=== PATIENT | male | born 1990 | race African-American/Black ===

== ENCOUNTER → 2017-07-21 | Day surgery (SDC) | payer OTHER ==
[~2017-07-21] VITALS: Ht 185.4 cm; Wt 122.3 kg
[~2017-07-21] MED LIST: ACETAMINOPHEN 1000 MG/100 ML 100 ML IV ONE; BACITRACIN TOP OINT 15 GM TUBE ONE; BUPIVACAINE HCL PF 0.5% 30 ML VIAL ONE; CHLORHEXIDINE GLUCONATE 2 % 1 PACK (2 CLOTHS) TOPICAL PRN; DEXAMETHASONE SOD PHOS 4 MG/ML VIAL IV ONE; DO NOT ADM ANY ANTICOAGULANT DRUGS PRN; GLYCOPYRROLATE 1 MG/5 ML SYRINGE IV PUSH ONE; LACTATED RINGER'S 1000 ML INJ 1,000 ML IV ONE; LACTATED RINGER'S 1000 ML IV PRN; LIDOCAINE HCL 1% PF 5 ML SYRINGE OTHER ONE; METOPROLOL TARTRATE 25 MG TAB PO PRN; MIDAZOLAM HCL 2 MG/2 ML VIAL IV ONE; MORPHINE SULFATE 2 MG/ML INJ IV PRN; NEOSTIGMINE 3 MG/3 ML SYR IV ONE; ONDANSETRON HCL 4 MG/2 ML VIAL IV PUSH ONE; ONDANSETRON HCL 4 MG/2 ML VIAL IV PUSH PRN; POVIDONE IODINE 5% (ANTISEPSIS KIT) 4 APPLICATIONS EACH NARE PRN; PROPOFOL 200 MG/20 ML AMP IV ONE; ROCURONIUM INJ 50 MG/5 ML SYRINGE IV PUSH ONE; SODIUM CHLORID 0.9% 500 ML IV PRN; ceFAZolin 1,000 MG/NS 100 ML IV SCH; oxyCODONE/ACETAMINOPHEN 5 MG/325 MG TAB PO PRN
[2017-07-21 09:39] LABS: AUTOMATED NEUTROPHIL # 1.8 TH/MM3 (1.8-7.7); BASOPHIL % 0.8 % (0.0-2.0); EOSINOPHIL # 0.1 TH/MM3 (0-0.4); EOSINOPHIL % 3.2 % (0.0-4.0); HEMATOCRIT 43.8 % (39.0-51.0); HEMO FLAGS DIFF FINAL; LYMPH % 45.6 % (9.0-44.0); LYMPHOCYTE # 1.8 TH/MM3 (1.0-4.8); MEAN CELL VOLUME 88.2 FL (80.0-100.0); MEAN CORPUSCULAR HEMOGLOBIN 30.5 PG (27.0-34.0); MEAN CORPUSCULAR HGB CONC 34.6 % (32.0-36.0); NEUT % 43.4 % (16.0-70.0); PLATELET COUNT 213 TH/MM3 (150-450); RED BLOOD COUNT 4.97 MIL/MM3 (4.50-5.90); RED CELL DISTRIBUTION WIDTH 13.6 % (11.6-17.2)
--- NOTE | 2017-07-21 12:15 | PD.OP ---
Operative Report Date of Surgery: Jul 21, 2017 Preoperative Diagnosis: Phimosis Postoperative Diagnosis: Same Procedure: Circumcision Anesthesia: Gen. LMA Surgeon: Brenden Tam Cable Tv Installer(s): None Resident Surgeon: None Operation and Findings: 27 year-old male resented to the office with complaints of it here for skin having pain with intercourse. Patient elected to undergo circumcision. Risk and benefits were discussed in the office including bleeding and infection and he was willing to proceed. Praveena's brought to the operating room and placed in the supine position. He was prepped and draped in usual sterile fashion, received preprocedure antibiotics, and general LMA anesthesia was administered. A double ring circumcision was then performed. Half percent Marcaine was used to perform a penile block. Using the 15 blade, a circumdential incision was made over the overlying foreskin and also around the glans penis. This area tissue was then resected and removed. Hemostasis was then performed using the Bovie cautery. Derek was also used. Once hemostasis was obtained the remaining foreskin was then reattached with interrupted 3-0 chromic sutures. At the completion of the procedure, a Xeroform dressing with gauze was then placed around the incision site. Care was taken to not place the West too tightly. He was awoken and transferred to recovery room in stable condition. He will follow-up in one month in the office for a wound check. Brenden Tam DO Jul 21, 2017 12:15
[2017-07-21 14:02] VITALS: BP 128/80; PULSE 68; RESP 18; TEMP 97.5; O2SAT 99
== END | disposition home or self-care (01) ==
LOC: HSDC 08:36
PROVIDERS: ATTEND Urology
DX: N47.1 Phimosis (principal); N47.8 Other disorders of prepuce; R79.89 Other specified abnormal findings of blood chemistry
CPT/HCPCS: 00920; 54150; 85025; 88304; J0131; J0690; J1100; J2250; J2405; J2710; J3010; J7120; 88302